=== PATIENT | female | born 1985 | race Caucasian/White ===

== ENCOUNTER 2018-03-23 14:16 | Emergency (ER) | payer SELFPAY ==
[2018-03-23 14:31] VITALS: BP 170/104
--- NOTE | 2018-03-23 15:14 | ED Physician Documentation ---
General Adult - HISTORIAN Historian: patient - HPI Stated Complaint: Back pain Chief Complaint: Low Back Pain/ Injury Additional Information: LBP with aditi sciatica for several years. Worse the last two days. Travelling with leoncio and her PCP is in [place]. Out of tramadol - usually takes 100 mg tid. Also takes flexeril 10 mg HS. Denies loss of bowel/bladder control, weakness, paralysis. - ROS CONST: no problems - PAST HX Past History: other (chronic low back pain, fibromyalgia) Surgeries/Procedures: cholecystectomy, other (D&C; right foot) Allergies/Adverse Reactions: Allergies Allergy/AdvReac Type Severity Reaction Status Date / Time acetaminophen [From Tylenol] Allergy Verified 03/23/18 14:31 bupropion [From Wellbutrin] Allergy Verified 03/23/18 14:31 Home Medications: Ambulatory Orders Medication Instructions Recorded Cyclobenzaprine HCl [Flexeril] 10 mg PO HS PRN #15 tablet 03/23/18 Gabapentin [Neurontin] 1 cap PO TID 03/23/18 Ibuprofen [Ibuprofen Ib] 3 tab PO PRN PRN 03/23/18 Ranitidine HCl [Heartburn Relief] 1 tab PO DAILY 03/23/18 Tramadol HCl [Ultram] 2 tab PO TID 03/23/18 traMADol HCL [Ultram] 50 mg PO Q6H #15 tablet 03/23/18 - SOCIAL HX Smoking History: cigarettes - FAMILY HX Family History: No - VITAL SIGNS Vital Signs: Vital Signs Temp Pulse Resp BP Pulse Ox 96.9 F L 117 H 16 170/104 99 03/23/18 14:25 03/23/18 14:25 03/23/18 14:25 03/23/18 14:25 03/23/18 14:25 - REVIEWED ASSESSMENTS Nursing Assessment Reviewed: Yes Vitals Reviewed: Yes ED Results Lab/Radiology - Orders Orders: ED Orders Category Date Time Status Ketorolac Tromethamine [Toradol] Med 03/23/18 15:04 Once 60 mg IM NOW ONE Orphenadrine Citrate [Norflex] Med 03/23/18 15:04 Once 60 mg IM NOW ONE General Adult Physical Exam - PHYSICAL EXAM GENERAL APPEARANCE: mild distress EENT: eye inspection normal, ENT inspection normal NECK: normal inspection, supple RESPIRATORY: no resp distress, breath sounds normal CVS: reg rate & rhythm, heart sounds normal BACK: normal inspection, no CVA tenderness, other (no vertebral tenderneszs) SKIN: warm/dry, normal color EXTREMITIES: normal range of motion (gait and stance), no evidence of injury, no edema NEURO: CN's nml as tested, motor nml, sensation nml, other (reflexes 2+ throughout; can dorsifle 1st toes against resistance; SLR negative bilaterally to 90 degrees.) Discharge Clincal Impression: Low back pain Qualifiers: Chronicity: chronic Back pain laterality: bilateral Sciatica presence: with sciatica Sciatica laterality: bilateral sciatica Qualified Code(s): M54.42 - Lumbago with sciatica, left side; M54.41 - Lumbago with sciatica, right side; M54.41 - Lumbago with sciatica, right side; G89.29 - Other chronic pain; G89.29 - Other chronic pain Prescriptions: Cyclobenzaprine HCl [Flexeril] 10 mg PO HS PRN #15 tablet PRN Reason: Pain traMADol HCL [Ultram] 50 mg PO Q6H #15 tablet Referrals: Primary Doctor,No [Primary Care Provider] - 2 Days Disposition: 01 HOME, SELF-CARE Decision to Admit: NO Decision Time: 14:55
[2018-03-23] MEDS: ORPHENADRINE CITRATE 60 MG/2ML IM ONE (15:15)
[2018-03-23] MEDS: KETOROLAC TROMETHAMINE 60 MG/2 ML VIAL IM ONE (15:15)
== END 2018-03-23 15:23 | disposition home or self-care (01) ==
LOC: ED 14:16
DX: M54.42 Lumbago with sciatica, left side (principal); M54.41 Lumbago with sciatica, right side; G89.29 Other chronic pain
CPT/HCPCS: J1885; J2360; 96372; 99283